=== PATIENT | male | born 1960 | race Caucasian/White ===

== ENCOUNTER 2024-02-07 10:59 | Outpatient (CLI) | payer BC, SELFPAY ==
[2024-02-07 19:12] LABS: Basophils % 0.7 % (0.1-2.0); Eosinophils % 0.7 % (0.1-12.0); Hemoglobin 15.6 g/dL (14.1-18.0); Lymphocytes # 1.5 K/mm3 (0.7-4.5); Lymphocytes % 27.4 % (10-50); Mean Corpuscular HGB Conc 33.9 g/dL (31.8-35.4); Mean Corpuscular Hemoglobin 28.5 pg (27.0-31.2); Mean Platelet Volume 7.6 fl (7.4-10.4); Monocytes # 0.3 K/mm3 (0.1-1.0); Monocytes % 5.5 % (1.7-9.3); Neutrophils # 3.7 K/mm3 (1.8-7.8); Neutrophils % 65.7 % (37.0-80.0); Platelet Count 254 K/mm3 (142-424); Red Blood Count 5.47 M/mm3 (4.60-6.20); Red Cell Distribution Width 14.1 % (11.5-17.5); White Blood Count 5.6 K/mm3 (4.8-10.8)
[2024-02-07 19:29] LABS: Alanine Aminotransferase 37 U/L (12-78); Albumin Level 4.6 g/dl (3.5-5.0); Albumin/Globulin Ratio 1.6 (1.1-1.8); Alkaline Phosphatase 86 U/L (38-126); Anion Gap 9.9 mEq/L (5-15); Aspartate Amino Transferase 55 U/L (17-59); Bilirubin,Total 0.7 mg/dl (0.2-1.3); Blood Urea Nitrogen 14 mg/dl (9-20); Calcium 9.2 mg/dl (8.4-10.2); Carbon Dioxide 26 mmol/L (22.0-30.0); Chloride 108 mmol/L (98-107); Chol/HDL Ratio 6.4 (1-3.5); Cholesterol 245 mg/dl (140-200); Estimated Glomerular Filt Rate 85 ml/min (>60); GFR (African American) 103 ML/MIN (>60); Globulin 2.9 g/dL (1.3-3.2); Glucose 91 mg/dl (74-100); HDL Cholesterol 38 mg/dl (40-60); Potassium 3.9 mmoL/L (3.5-5.1); Sodium 140 mmol/L (136-145); Total Protein,Serum 7.5 g/dl (6.3-8.2); Triglycerides 271 mg/dl (30-150); VLDL Cholesterol 54 mg/dL (0-40)
[2024-02-07 19:40] LABS: Direct LDL Cholesterol 154.99 mg/dL (100-129)
== END 2024-02-07 23:59 | disposition home or self-care (01) ==
LOC: LAB.DROPOF 02-08 10:59
PROVIDERS: PCP Family Medicine; Visit Provider Family Medicine
DX: R07.89 Other chest pain (principal); Z12.5 Encounter for screening for malignant neoplasm of prostate
CPT/HCPCS: 80053; 80061; 85025; G0103

== ENCOUNTER 2024-02-16 07:13 | Outpatient (CLI) | payer BC, SELFPAY ==
--- NOTE | 2024-02-16 | CA_ITS ---
APPROVED REPORT Exam: Exercise Treadmill Technologist: Marge Caruso Ht: 5 ft 2 in Wt: 172 lbs BSA: 1.83 m2 HR: 85 bpm BP: 143/83 mmHg Rhythm: NSR Indications: Chest pain Medical History Medical History: Angina Stress Test Details Test: Exercise stress testing was performed using a Blaine protocol. HR Resting HR: 85 bpm Max Heart Rate (APMHR): 157 bpm Max HR Achieved: 142 bpm Target HR (85% APMHR): 133 bpm % of APMHR: 90 Recovery HR: 113 bpm HR response to stress: Normal HR response to stress BP Resting BP: 143.0/83.0 mmHg Max BP: 214.0/84.0 mmHg BP response to stress: Abnormal hypertensive response to stress. ECG Resting ECG: NSR Stress EC.[address] depression Arrhythmia: None Recovery ECG: Return to baseline within 3 minutes of recovery Recovery Arrhythmia: None Clinical Exercise duration: 6:15 min Exercise capacity: 5.4 METs Overall Exercise Capacity for Age: Fair Stress ECG Conclusion The patient was able to exercise for a total of 6 minutes, 15 seconds. He achieved a total of 5.4 METS. He has fair exercise capacity compared to age and sex matched peers. He has normal HR, but exaggerated hypertensive BP, response to exercise. The test was eventually stopped due to generalized fatigue. Ectopy: None ST changes: 0.[address] depression Conclusion: Fair exercise capacity. Hypertensive BP response to exercise. BP control is recommended. ECG portion of stress test demonstrates no evidence of ischemia at peak stress. Myoview images are reported separately. Electronically signed by : Dinah Smart MD 02/17/2024 12:00:03
--- NOTE | 2024-02-16 07:13 | NM_ITS ---
APPROVED REPORT Exam: Nuclear Stress Test Indication: htn, hyperlipidemia, c.p., sob Patient Location: Outpatient Stress Tech: Marge Caruso NC Tech:Padma Thomas CALSukhi RT (R)(N)(M) Ht: 5 ft 2 in Wt: 172 lbs HR: 88 bpm BP: 143/83 mmHg BSA: 1.79 m2 Rhythm: NSR TID: 0.94 BMI: 31.4 History: Chest pain, shortness of breath, hypertension, hyperlipidemia Procedure: Patient exercised on Blaine protocol 6:15 minutes and sec, resting heart rate 88 bpm, resting blood pressure 143/83 mmHg, with exercise maximum heart rate achived was 142 bpm which is 90 % of the maximum predicted heart rate and blood pressure was 214/84 mmHg. Test was stopped due to sob. Patient denied any complaint of chest pain. Patient has fair exercise capacity, achieved 5.4 METs of workload on treadmill, the blood pressure response to exercise was hypertensive. Cardiac Stress and Resting SPECT Images: Cardiac Stress and Resting SPECT images were obtained using technetium 99m Myoview 23.7 mCi stress and 8.39 mCi at rest. Raw images demonstrate significant soft tissue overlap with the cardiac borders. This may affect the diagnostic interpretation of the study findings. Resting and stress imaging in supine positions demonstrate a large sized, mild, fixed perfusion defect in the inferior LV wall. This is no longer visualized with prone stress imaging. Findings are suggestive of diaphragmatic attenuation. Gated imaging demonstrates normal global and regional LV systolic function. LVEF is calculated at 68%. Conclusion: Diaphragmatic attenuation is present. No evidence of fixed or reversible perfusion defects. Gated imaging demonstrates normal global and regional LV systolic function. LVEF is calculated at 68%. Of note, the the patient has a hypertensive BP response to exercise (which may explain the patient's exertional symptoms). Further BP control is recommended. Electronically signed by : Dinah Smart MD 02/17/2024 12:02:46
--- NOTE | 2024-02-16 07:13 | XR_ITS ---
PROCEDURE INFORMATION: Exam: XR Chest Exam date and time: 02/16/2024 7:15 AM Age: 63 years old Clinical indication: Other: Pleuritic chest pain TECHNIQUE: Imaging protocol: Radiologic exam of the chest. Views: 2 views. PA and Lateral COMPARISON: No relevant prior studies available. FINDINGS: Tubes, catheters and devices: None. Lungs: The lungs appear clear without pulmonary venous congestion. Pleural spaces: No pleural effusion. No pneumothorax. Heart/Mediastinum: Mediastinum and radha appear unremarkable. Bones/joints: No acute bony abnormality identified. IMPRESSION: No evidence for an acute cardiopulmonary process.
[2024-02-16] MEDS: SODIUM CHLORIDE 0.9% 10ML SYR (RAD ONLY) 10 ML IV ×2 (07:25→09:50)
[2024-02-16] MEDS: ISOTOPE MYOVIEW (PER STUDY) 1 DOSE IV (11:10)
== END 2024-02-16 23:59 | disposition home or self-care (01) ==
LOC: RAD 07:13
PROVIDERS: PCP Family Medicine; Visit Provider Family Medicine
DX: R07.9 Chest pain, unspecified (principal); E78.5 Hyperlipidemia, unspecified; I10 Essential (primary) hypertension; L98.9 Disorder of the skin and subcutaneous tissue, unspecified
CPT/HCPCS: 71046; 78451; 93017; 93018; A9502

== ENCOUNTER 2024-03-10 11:28 | Outpatient (CLI) | payer BC, SELFPAY ==
[2024-03-10 12:12] VITALS: BMI 31.4
[2024-03-10 12:26] LABS: Basophils % 0.6 % (0.1-2.0); Eosinophils # 0.1 K/mm3 (0.0-0.4); Eosinophils % 1.1 % (0.1-12.0); Hematocrit 43.7 % (42.0-52.0); Hemoglobin 15.3 g/dL (14.1-18.0); Lymphocytes # 1.9 K/mm3 (0.7-4.5); Lymphocytes % 31.8 % (10-50); Mean Corpuscular HGB Conc 34.9 g/dL (31.8-35.4); Mean Corpuscular Hemoglobin 28.6 pg (27.0-31.2); Mean Platelet Volume 6.9 fl (7.4-10.4); Monocytes # 0.3 K/mm3 (0.1-1.0); Monocytes % 4.8 % (1.7-9.3); Neutrophils # 3.7 K/mm3 (1.8-7.8); Neutrophils % 61.8 % (37.0-80.0); Platelet Count 236 K/mm3 (142-424); Red Blood Count 5.34 M/mm3 (4.60-6.20); Red Cell Distribution Width 14.2 % (11.5-17.5)
[2024-03-10 12:50] LABS: Chloride 107 mmol/L (98-107); Potassium 4.5 mmoL/L (3.5-5.1); Sodium 135 mmol/L (136-145)
[2024-03-10 12:53] LABS: Anion Gap 15.5 mEq/L (5-15); Blood Urea Nitrogen 13 mg/dl (9-20); Calcium 9.3 mg/dl (8.4-10.2); Carbon Dioxide 17 mmol/L (22.0-30.0); Creatinine Clearance Estimated 83 mL/min (50-200); Estimated Glomerular Filt Rate 75 ml/min (>60); GFR (African American) 91 ML/MIN (>60); Glucose 103 mg/dl (74-100)
== END 2024-03-10 23:59 | disposition home or self-care (01) ==
LOC: PREOP 11:31
PROVIDERS: Nurse Anesthetist, Certified Registered; PCP Family Medicine; Visit Provider Surgery
DX: Z01.812 Encounter for preprocedural laboratory examination (principal)
CPT/HCPCS: 80048; 85025

== ENCOUNTER 2024-03-13 07:41 | Day surgery (SDC) | payer BC, SELFPAY ==
[2024-03-10 12:14] VITALS: BMI 31.4
[2024-03-13] VITALS (7 sets, daily range): BP systolic 112–153; BP diastolic 68–77; PULSE 76–95; RESP 16–22; TEMP 36.2–36.6; O2SAT 96–100
[2024-03-13] MEDS: 0.9 % SODIUM CHLORIDE 1000ML 1,000 ML 25 ML IV (08:29)
--- NOTE | 2024-03-13 09:00 | EXP.ANES.CKL ---
[facility] Disclaimer: The information contained in this section may have been updated after the patient was seen, as this information can be updated by other users. Medical History Chest pain Skin lesion of chest wall Hyperlipidemia Hypertension Surgical History H/O inguinal hernia repair Family History Other No significant family history Social History Smoking Status: Never smoker alcohol intake: never substance use type: denies use current occupational status: retired [employer] Anesthesia Checklist Patient Identification Patient Identification: Verbal (Name & ) Structural Data Admitted From: Home Planned Operative Procedure/s: excision chest wall neoplasm Consent for Planned Operative Procedure(s) Verified: Yes NPO Status Verified Time NPO: 00:00 Additional verifications Anesthesia Reactions: No Hx Blood Transfusions: No Blood Transfusion Reaction: No Airway Assessment Mallampati Score:: Class II C-Spine Mobility Assessed: Yes TMJ Mobility Assessed: Yes Dentition: Poor Dentition Neurological Assessment Level of Consciousness: Awake, Alert and Appropriate Anesthesia Plan Anesthesia Risk discussed: Yes Anesthesia Plan: Verified ASA Class: II Anesthesia Type: MAC
[2024-03-13] MEDS: CEFAZOLIN SODIUM 2 GM in 0.9 % SODIUM CHLORIDE 100 ML IV (10:06)
[2024-03-13] MEDS: LIDOCAINE 1% 20ML MDV 20 ML (10:20)
[2024-03-13] MEDS: ROPIVACAINE 0.5% 30ML VIAL 150 MG (10:20)
--- NOTE | 2024-03-13 10:42 | P.OP_ITS ---
Date of procedure: 03/13/24 Pre-op Diagnosis:: Skin cancer, chest wall Post-op Diagnosis:: Time Procedure performed:: Excision of basal cell skin cancer from the chest (excisional length 5.5 cm) with intermediate complexity closure Surgeon:: Ky Massey MD HYDRAULIC ELEVATOR CONSTRUCTOR:: Valentin Zamudio Anesthesia: LMA Estimated blood loss (mL): 7 Clinical Note:: Patient is a 63-year-old male who had a suspicious skin lesion on the chest for greater than 1 year. He was sent for surgical consultation. Punch biopsy was performed which returned as basal cell carcinoma. Plan was made for definitive excision. Operative findings:: Somewhat ulcerated pearly raised lesion Operative note:: Consent was obtained and patient was taken the operating room. He was positioned in supine position. General anesthesia was induced via LMA. The area was prepped and draped. Lesion was marked with a skin marker for planned generous margins 4 to 5 mm given the potential for squamous cell component to the basal cell carcinoma. Lesion was marked with a skin marker for planned elliptical incision with generous margins. Local anesthetic was infiltrated. Full-thickness incision was performed. Skin was dissected free from the underlying subcutaneous tissue with electrocautery. Excised skin lesion was marked with a suture placing short suture superiorly and long suture to the lateral. Hemostasis was achieved with electrocautery. Deep dermal tissues were reapproximated with multiple interrupted 3-0 Vicryl suture. Skin was closed with 3-0 nylon suture. Clean dry sterile dressing was applied. Condition: stable Disposition: PACU Complications:: None immediately apparent
--- NOTE | 2024-03-13 10:53 | P.PNANES_ITS ---
[facility] Anesthesia Record Part I Anesthesia Record I Intake, IV Amount: 650 Hydration: Adequate Estimated blood loss (mL): 7 Urine output (mL): 0 Blood Products used (#): none Blood Pressure: 153/71 SaO2: 97 Pulse Rate: 76 Airway Patency: Patent Respiratory Rate: 22 Temperature: 97.7 F Patient is:: Drowsy and Stable Stable to PACU at:: 10:46
--- NOTE | 2024-03-14 07:42 | EXP.ANES.II ---
[facility] Anesthesia Record Part II Anesthesia Record Part II Discharge Time: 11:16 Destination: Surgical Day Care (OP Surgery) PACU nurse assessment reviewed?: Yes Patient Condition:: Good Anesthesia Complications:: None Swallowing reflex intact?: Yes Airway Patency: Patent Cyanosis?: No Blood Pressure: 132/73 SaO2: 98 Respiratory Rate: 16 Pulse Rate: 95 Temperature: 97.5 F Mental Status: Alert & Oriented Pain level:: 0 Nausea and/or vomitting:: None Intake, IV Amount: 0 Hydration: Adequate
[2024-03-14 07:43] VITALS: BP 132/73; PULSE 95; RESP 16; TEMP 36.4; O2SAT 98
== END 2024-03-13 11:31 | disposition home or self-care (01) ==
PROVIDERS: PCP Family Medicine; Visit Provider Surgery
PROC: (CPT 11602; principal; 2024-03-13 09:15)
DX: C44.519 Basal cell carcinoma of skin of other part of trunk (principal)
CPT/HCPCS: 11602; 12032; J0690; J1100; J2405; J3010; J7030

== ENCOUNTER 2024-07-04 14:44 | Outpatient (CLI) | payer BC, SELFPAY ==
[2024-07-04 21:28] LABS: Albumin Level 4.6 g/dl (3.5-5.0); Chloride 106 mmol/L (98-107); Potassium 4.3 mmoL/L (3.5-5.1); Sodium 140 mmol/L (136-145)
[2024-07-04 21:30] LABS: Blood Urea Nitrogen 27 mg/dl (9-20)
[2024-07-04 21:31] LABS: Alanine Aminotransferase 67 U/L (12-78); Albumin/Globulin Ratio 1.6 (1.1-1.8); Alkaline Phosphatase 86 U/L (38-126); Anion Gap 17.3 mEq/L (5-15); Aspartate Amino Transferase 69 U/L (17-59); Carbon Dioxide 21 mmol/L (22.0-30.0); Cholesterol 122 mg/dl (140-200); Estimated Glomerular Filt Rate 51 ml/min (>60); GFR (African American) 62 ML/MIN (>60); Globulin 2.8 g/dL (1.3-3.2); Total Protein,Serum 7.4 g/dl (6.3-8.2); Triglycerides 169 mg/dl (30-150); VLDL Cholesterol 34 mg/dL (0-40)
[2024-07-04 21:32] LABS: Calcium 9.4 mg/dl (8.4-10.2); Chol/HDL Ratio 3.7 (1-3.5); Glucose 105 mg/dl (74-100); HDL Cholesterol 33 mg/dl (40-60)
[2024-07-04 21:51] LABS: Bilirubin,Total < 0.1 mg/dl (0.2-1.3)
[2024-07-04 21:53] LABS: Direct LDL Cholesterol 53.93 mg/dL (100-129)
== END 2024-07-04 23:59 | disposition home or self-care (01) ==
LOC: LAB.DROPOF 07-05 09:30
PROVIDERS: PCP Family Medicine; Visit Provider Family Medicine
DX: E78.5 Hyperlipidemia, unspecified (principal); I10 Essential (primary) hypertension
CPT/HCPCS: 80053; 80061

== ENCOUNTER 2024-08-03 15:45 | Outpatient (CLI) | payer BC, SELFPAY ==
[2024-08-03 19:51] LABS: Anion Gap 16.5 mEq/L (5-15); Blood Urea Nitrogen 17 mg/dl (9-20); Carbon Dioxide 22 mmol/L (22.0-30.0); Chloride 106 mmol/L (98-107); Estimated Glomerular Filt Rate 98 ml/min (>60); GFR (African American) 118 ML/MIN (>60); Glucose 86 mg/dl (74-100); Potassium 4.5 mmoL/L (3.5-5.1); Sodium 140 mmol/L (136-145)
== END 2024-08-03 23:59 | disposition home or self-care (01) ==
LOC: LAB.DROPOF 08-04 12:09
PROVIDERS: PCP Family Medicine; Visit Provider Family Medicine
DX: N28.9 Disorder of kidney and ureter, unspecified (principal)
CPT/HCPCS: 80048

== ENCOUNTER 2024-08-14 10:58 | Outpatient (CLI) | payer BC, SELFPAY ==
--- NOTE | 2024-08-14 11:00 | CA_ITS ---
FINAL REPORT CLINICAL HISTORY: ABN RENAL FUNCTION,HTN COMPARISON: None FINDINGS: RENAL ULTRASOUND The right kidney measures 10.8 cm in length. No evidence of hydronephrosis or focal mass is identified. The left kidney measures 12 cm in length. No evidence of hydronephrosis or focal mass is noted. There is a small echogenic focus noted in the upper pole of the left kidney with slight shadowing that may represent a tiny renal stone. IMPRESSION: No evidence of hydronephrosis or focal mass. Questionable upper pole left renal stone. Reviewed, Interpreted and Dictated by Michael Lopez MD Transcribed by Liliane Regalado Authenticated and [facility]
--- NOTE | 2024-08-14 13:00 | US_ITS ---
FINAL REPORT CLINICAL HISTORY: N28.9 - Disorder of kidney and ureter, unspecified COMPARISON: None FINDINGS: Aorta velocity: 144 cm/sec Right kidney: 10.5 cm. No evidence of hydronephrosis or mass. Right intrarenal RI: 0.50-0.57 Right renal artery velocity: 186 cm/sec. Right RAR (Renal artery-Aortic Ratio): 1.3 Left Kidney: 11 cm. No evidence of hydronephrosis or mass. Left intrarenal RI: 0.38-0.55 Left renal artery velocity: 133 cm/sec. Left RAR (Renal Artery-Aortic Ratio): 0.9 IMPRESSION: No evidence of significant renal artery stenosis in the left renal artery. Less than 60% stenosis of the right renal artery. CT angiogram or postcontrast MR angiogram would be more sensitive for evaluation of possible renal artery stenosis. Reviewed, Interpreted and Dictated by Michael Lopez MD Transcribed by Liliane Regalado Authenticated and [facility]
== END 2024-08-14 23:59 | disposition home or self-care (01) ==
LOC: RT 10:58
PROVIDERS: PCP Family Medicine; Visit Provider Family Medicine
DX: R94.4 Abnormal results of kidney function studies (principal)
CPT/HCPCS: 76770; 93976